=== PATIENT | female | born 1950 ===

== ENCOUNTER 2017-06-22 16:01 | Emergency (ER) | payer MEDICARE ==
[2017-06-22 16:01] VITALS: BMI 24.3
[2017-06-22 16:37] VITALS: O2SAT 96
[2017-06-22] MEDS ORDERED: Sodium Chloride 0.9% 1,000 ML IV ONE (16:48)
[2017-06-22] MEDS ORDERED: Alum-Mag Hydrox-Simethicone Susp (30 mL) PO STA (16:53)
[2017-06-22] MEDS ORDERED: Alum-Mag Hydrox-Simethicone Susp (30 mL) ONE (17:19)
[2017-06-22] MEDS ORDERED: Sodium Chloride 0.9% 1,000 ML ONE (17:19)
[2017-06-22 17:31] LABS: BASO % 0.6 % (0.0-2.0); EOS % 0.7 % (0.0-4.0); LYMPH # 1.2 K/uL (1.0-4.3); LYMPH % 27.4 % (20.0-40.0); MEAN CELL VOLUME 86.1 fL (81.0-99.0); MEAN CORPUSCULAR HEMOGLOBIN 29.9 pg (27.0-31.0); MEAN CORPUSCULAR HGB CONC 34.7 g/dL (33.0-37.0); MEAN PLATELET VOLUME 10.8 fL (7.2-11.7); MONO # 0.4 K/uL (0.0-0.8); MONO % 9.5 % (0.0-10.0); NEUT # 2.7 K/uL (1.8-7.0); NEUT % 61.8 % (50.0-75.0); NRBC % 0.1 % (0.0-2.0); RBC 4.33 Mil/uL (3.80-5.20); WHITE BLOOD COUNT 4.4 K/uL (4.8-10.8)
[2017-06-22 17:34] LABS: ALB/GLOB RATIO 1.1 (1.0-2.1); ALBUMIN 4.3 g/dL (3.5-5.0); ALT/SGPT 36 U/L (9-52); AST/SGOT 29 U/L (14-36); BLOOD UREA NITROGEN 13 mg/dL (7-17); CALCIUM 8.7 mg/dl (8.6-10.4); GFR AFRICAN-AMERICAN > 60; GFR NON-AFRICAN AMERICAN > 60; LIPASE 79 U/L (23-300)
[2017-06-22 17:39] LABS: SQUAMOUS EPITHIAL < 1 /hpf (0-5); URINE BACTERIA OCC (<OCC); URINE BILIRUBIN NEGATIVE (NEGATIVE); URINE BLOOD NEGATIVE (NEGATIVE); URINE CLARITY Clear (Clear); URINE COLOR Yellow (YELLOW); URINE GLUCOSE (UA) NORMAL (Normal); URINE LEUKOCYTE ESTERASE 1+ Leu/uL (Negative); URINE PROTEIN NEGATIVE (NEGATIVE); URINE UROBILINOGEN NORMAL mg/dL (0.2-1.0)
[2017-06-22] MEDS ORDERED: Iohexol 300 100 ML IJ ONE (18:26)
--- NOTE | 2017-06-22 20:58 | CT ---
EXAM: CT Abdomen and Pelvis With Intravenous Contrast EXAM DATE/TIME: 06/22/2017 5:48 PM CLINICAL HISTORY: 67 years old, female; Pain; Abdominal pain; Periumbilical; Additional info: Abdominal pain, fever. TECHNIQUE: Axial computed tomography images of the abdomen and pelvis with intravenous contrast. All CT scans at this facility use one or more dose reduction techniques, viz.: automated exposure control; ma/kV adjustment per patient size (including targeted exams where dose is matched to indication; i.e. head); or iterative reconstruction technique. Coronal and sagittal reformatted images were created and reviewed. CONTRAST: 100 mL of omnipaque 300 administered intravenously. COMPARISON: There are no prior studies for comparison. FINDINGS: Lower thorax: Heart size is at the upper limits of normal. There is mild increase in interstitial markings at the lung bases. There is atelectasis and scarring at the lung bases. There is a small hiatal hernia ABDOMEN: Liver: There is fatty infiltration of the liver. Gallbladder and bile ducts: unremarkable Pancreas: unremarkable Spleen: unremarkable Adrenals: unremarkable Kidneys and ureters: unremarkable Stomach and bowel: Stomach is incompletely distended which accentuates the gastric wall. Bowel rotation is normal. There is no small bowel obstruction. Mid and distal small bowel is mildly distended with fluid and air.. Terminal ileum is mildly distended with fluid. Normal caliber appendix contains fluid and air. There is moderate stool throughout the colon. There is mild sigmoid wall prominence. There is minimal diverticulosis. PELVIS: Appendix: See stomach and bowel Bladder: unremarkable Reproductive: Uterus is absent. There are no adnexal masses. ABDOMEN and PELVIS: Intraperitoneal space: There is no free air or free fluid. Bones/joints: There are degenerative changes in the osseus structures. There is sclerosis at the left sacroiliac joint. Soft tissues: unremarkable Vasculature: There are vascular calcifications. Lymph nodes: There is shotty mesenteric adenopathy IMPRESSION: Mild ileus, no obstruction; no CT findings of appendicitis; fatty liver, no acute solid visceral abnormality
--- NOTE | 2017-06-22 21:08 | C.PDOC ---
Time Seen by Provider: 06/22/17 16:41 Chief Complaint (Nursing): Abdominal Pain History Per: Patient Onset/Duration Of Symptoms: Days (1) Current Symptoms Are (Timing): Still Present Severity: Moderate Location Of Pain/Discomfort: Diffuse Quality Of Discomfort: Unable To Describe, Other (discomfort) Associated Symptoms: Fever Alleviating Factors: None Additional History Per: Prior Records Past Medical History Reviewed: Historical Data, Nursing Documentation, Vital Signs Vital Signs: Last Vital Signs Temp 101.8 F H 06/22/17 18:01 Pulse 90 06/22/17 16:32 Resp 20 06/22/17 16:32 BP 143/80 06/22/17 16:32 Pulse Ox 96 06/22/17 16:32 - Medical History PMH: HTN, Hypercholesterolemia, Hyperlipidemia, Hypothyroidism Surgical History: No Surg Hx Family History: States: Diabetes, Hypertension - Social History Hx Tobacco Use: No Hx Alcohol Use: No Hx Substance Use: No - Immunization History Hx Tetanus Toxoid Vaccination: Yes Hx Influenza Vaccination: Yes Hx Pneumococcal Vaccination: Yes (2017) Review Of Systems Except As Marked, All Systems Reviewed And Found Negative. Constitutional: Positive for: Fever ENT: Negative for: Throat Pain Cardiovascular: Negative for: Chest Pain Respiratory: Negative for: Cough, Shortness of Breath Gastrointestinal: Positive for: Abdominal Pain. Negative for: Vomiting, Diarrhea, Constipation Genitourinary: Negative for: Dysuria, Frequency Musculoskeletal: Negative for: Neck Pain, Back Pain Skin: Negative for: Rash Neurological: Negative for: Weakness, Numbness, Seizures, Altered Mental Status , Headache Physical Exam - Physical Exam Appears: Non-toxic, No Acute Distress Skin: Normal Color, Warm, Dry, No Rash Head: Atraumatic, Normacephalic Eye(s): bilateral: Normal Inspection, PERRL, EOMI Neck: Normal ROM, Supple Cardiovascular: Rhythm Regular Respiratory: Normal Breath Sounds, No Accessory Muscle Use Gastrointestinal/Abdominal: Soft, Tenderness (mild nonspecific), No Distention, No Guarding, No Rebound Back: No CVA Tenderness Extremity: Normal ROM Neurological/Psych: Oriented x3, Normal Motor, Normal Sensation ED Course And Treatment - Laboratory Results Result Diagrams: 06/22/17 17:16 06/22/17 17:16 Lab Interpretation: No Acute Changes O2 Sat by Pulse Oximetry: 96 Pulse Ox Interpretation: Normal - CT Scan/US CT abd/pelv Other Rad Studies (CT/US): Read By Radiologist, Radiology Report Reviewed CT/US Interpretation: IMPRESSION: Mild ileus, no obstruction; no CT findings of appendicitis; fatty. liver, no acute solid visceral abnormality Progress Note: Pt feels much better and wants to go home. No abdominal pain or tenderness. Reevaluation Time: 21:00 Reassessment Condition: Improved Progress - Interventions Interventions:: Observation, Intravenous fluid - Medications Administered Oral: Acetaminophen - Data Reviewed Data Reviewed: Lab, Diagnostic imaging, Old records - Patient Status Patient status: Completely improved - Continuity of Care Discussed patient case with:: Patient, ED Nurse - Patient Plan Patient Plan: Discharge, F/U with PCP, Continue present meds Disposition Counseled Patient/Family Regarding: Studies Performed, Diagnosis, Need For Followup - Disposition Disposition: HOME/ ROUTINE Disposition Time: 21:09 Condition: IMPROVED Additional Instructions: Drink plenty of fluids. Follow up with your doctor for further evaluation and treatment. Return to the ER if you develop vomiting, back pain, worsening of symptoms or if you have any other concerns. Instructions: Fever, Adult (DC) Forms: [employer] (Ukrainian) Print Language: LITHUANIAN - Clinical Impression Clinical Impression: Fever, Abdominal discomfort
[2017-06-22 21:22] VITALS: BP 123/71; PULSE 70; RESP 18; TEMP 98.8
== END 2017-06-22 21:23 | disposition home or self-care (01) ==
LOC: C.ER 16:01
DX: R10.9 Unspecified abdominal pain (principal); R50.9 Fever, unspecified
CPT/HCPCS: 74177; 80053; 81001; 83690; 85025; 96360; 99284; J7040; Q9967

== ENCOUNTER 2018-06-12 08:33 | Outpatient (CLI) | payer MEDICARE | END 2018-06-12 08:34 | disposition home or self-care (01) | LOC: C.MAMMO 08:33 ==